=== PATIENT | male | born 1955 | race African-American/Black ===

== ENCOUNTER 2019-01-06 12:07 | Inpatient (IN) | payer OTHER ==
[~2019-01-06 12:07] MED LIST: niCARdipine 25 MG in SOD CHLORIDE 0.9% 240 ML IV
[2019-01-06 14:04] LABS: ADD MAN DIFF? NO
[2019-01-06 14:10] LABS: BASOPHILS % 0.7 % (0.0-2.0); EOSINOPHILS # 0.1 10^3/ul (0.0-0.5); EOSINOPHILS % 1.5 % (0.0-7.0); HEMATOCRIT 47.1 % (42.0-52.0); HEMOGLOBIN 14.8 g/dl (14.0-18.0); LYMPHOCYTES # 1.2 10^3/ul (0.8-2.9); LYMPHOCYTES % 29.3 % (15.0-51.0); MEAN CORPUSCULAR HGB CONC 31.4 g/dl (32.0-37.0); MEAN CORPUSCULAR VOLUME 79.7 fl (82.0-101.0); MEAN PLATELET VOLUME 8.8 fl (7.4-10.4); MONOCYTE # 0.5 10^3/ul (0.3-0.9); NEUTROPHIL # 2.3 10^3/ul (1.6-7.5); NEUTROPHILS % 56.3 % (39.0-77.0); PLATELET COUNT 228 10^3/UL (140-415); RED BLOOD COUNT 5.91 10^6/ul (4.70-6.10); RED CELL DISTRIBUTION WIDTH 13.5 % (11.5-14.5)
[2019-01-06 14:10] LABS: WHITE BLOOD COUNT 4.1 10^3/ul (4.8-10.8)
[2019-01-06] MEDS: SOD CHLORIDE 0.9% IV (14:16)
[2019-01-06 14:27] LABS: ALANINE AMINOTRANSFERASE 26 IU/L (13-69); ALBUMIN 4.2 g/dl (3.3-4.9); ALBUMIN/GLOBULIN RATIO 1.35; ALKALINE PHOSPHATASE 98 IU/L (42-121); ANION GAP 2 (5-13); ASPARTATE AMINO TRANSFERASE 25 IU/L (15-46); BILIRUBIN,INDIRECT 0.6 mg/dl (0-1.1); BILIRUBIN,TOTAL 0.6 mg/dl (0.2-1.3); BLOOD UREA NITROGEN 16 mg/dl (7-20); CALCIUM 9.2 mg/dl (8.4-10.2); CARBON DIOXIDE 34 mmol/L (21-31); CHLORIDE 104 mmol/L (97-110); CREATININE 1.21 mg/dl (0.61-1.24); Estimated GFR > 60 mL/min (>60); GLUCOSE 99 mg/dl (70-220); POTASSIUM 4.3 mmol/L (3.5-5.1); SODIUM 140 mmol/L (135-144); TOTAL PROTEIN 7.3 g/dl (6.1-8.1)
[2019-01-06 14:28] LABS: SALICYLATE < 1.0 mg/dl (5.0-30.0)
[2019-01-06 14:38] LABS: TROPONIN-I < 0.012 ng/ml (0.000-0.120)
[2019-01-06 14:46] LABS: ACETAMINOPHEN < 10.0 ug/ml (10.0-30.0); ETHANOL < 10.0 mg/dl (0-0); INR 1.08; PROTIME 14.1 Sec (11.9-14.9); PT RATIO 1.1
[2019-01-06] MEDS: SOD CHLORIDE 0.9% IVPB (14:57)
[2019-01-06] MEDS: DESMOPRESSIN IVPB (14:57)
[2019-01-06] MEDS: niCARdipine 25 MG in SOD CHLORIDE 0.9% 240 ML IV ×4 (15:10→22:19)
[2019-01-06] MEDS ORDERED: NACL 0.9% 3 ML SYG IV (16:00)
[2019-01-06] MEDS ORDERED: ONDANSETRON 4 MG INJ IV (16:00)
[2019-01-06 16:08] LABS: ADD UMIC YES; UR ASCORBIC ACID NEGATIVE (NEGATIVE); UR BILIRUBIN (Dip) NEGATIVE (NEGATIVE); UR BLOOD (Dip) 1+ mg/dL (NEGATIVE); UR CLARITY CLEAR (CLEAR); UR COLOR YELLOW (YELLOW); UR GLUCOSE (Dip) NEGATIVE (NEGATIVE); UR KETONES (Dip) NEGATIVE (NEGATIVE); UR LEUKOCYTE ESTERASE (Dip) NEGATIVE Leu/ul (NEGATIVE); UR MUCUS FEW /HPF (NONE SEEN); UR NITRITE (Dip) NEGATIVE (NEGATIVE); UR RBC 1 /HPF (0-5); UR SPECIFIC GRAVITY (Dip) 1.019 (1.003-1.030); UR TOTAL PROTEIN (Dip) NEGATIVE (NEGATIVE); UR UROBILINOGEN (Dip) NEGATIVE (NEGATIVE); UR WBC 0 /HPF (0-5)
[2019-01-06 16:53] LABS: AMPHETAMINE/METHAMPHETAMINE Negative (NEGATIVE); BARBITURATES Negative (NEGATIVE); BENZODIAZEPINES Negative (NEGATIVE); CANNABINOIDS Negative (NEGATIVE); COCAINE Negative (NEGATIVE); OPIATES Negative (NEGATIVE)
[2019-01-06 16:54] LABS: PARTIAL THROMBOPLASTIN TIME 33.2 Sec (23.0-35.0)
[2019-01-06] MEDS ORDERED: SOD CHLORIDE 0.9% 1,000 ML IV (17:00)
[2019-01-06 18:52] LABS: LACTIC ACID 1.2 mmol/L (0.5-2.0)
[2019-01-06] MEDS: ACETAMINOPHEN 325 MG TAB PO (20:03)
[2019-01-06 20:05] LABS: TYPE AND SCREEN 1 1
[2019-01-06] MEDS: LABETALOL 100 MG TAB PO (20:27)
[2019-01-06] MEDS: IODIXANOL LOCM 100 ML BTL (23:24)
[2019-01-06] MEDS: SOD CHLORIDE 0.9% 100 ML (23:24)
[2019-01-07] MEDS: niCARdipine 25 MG in SOD CHLORIDE 0.9% 240 ML IV ×4 (01:17→12:43)
[2019-01-07] MEDS: ACETAMINOPHEN 325 MG TAB PO ×2 (03:46→16:34)
[2019-01-07 05:27] LABS: ADD MAN DIFF? NO
[2019-01-07 05:33] LABS: WHITE BLOOD COUNT 5.9 10^3/ul (4.8-10.8)
[2019-01-07 05:33] LABS: BASOPHILS % 0.3 % (0.0-2.0); EOSINOPHILS # 0.1 10^3/ul (0.0-0.5); HEMATOCRIT 46.1 % (42.0-52.0); HEMOGLOBIN 15.1 g/dl (14.0-18.0); LYMPHOCYTES # 1.2 10^3/ul (0.8-2.9); LYMPHOCYTES % 20.3 % (15.0-51.0); MEAN CORPUSCULAR HEMOGLOBIN 25.5 pg (29.0-33.0); MEAN CORPUSCULAR HGB CONC 32.8 g/dl (32.0-37.0); MEAN PLATELET VOLUME 9.2 fl (7.4-10.4); MONOCYTE # 0.6 10^3/ul (0.3-0.9); MONOCYTES % 9.3 % (0.0-11.0); NEUTROPHIL # 4.1 10^3/ul (1.6-7.5); NEUTROPHILS % 68.8 % (39.0-77.0); PLATELET COUNT 253 10^3/UL (140-415); RED BLOOD COUNT 5.91 10^6/ul (4.70-6.10); RED CELL DISTRIBUTION WIDTH 13.5 % (11.5-14.5)
[2019-01-07 05:52] LABS: HEMOGLOBIN A1C 5.5 % (0-5.9)
[2019-01-07 06:12] LABS: ALANINE AMINOTRANSFERASE 27 IU/L (13-69); ALBUMIN 4.1 g/dl (3.3-4.9); ALBUMIN/GLOBULIN RATIO 1.24; ALKALINE PHOSPHATASE 100 IU/L (42-121); ANION GAP 10 (5-13); ASPARTATE AMINO TRANSFERASE 23 IU/L (15-46); BLOOD UREA NITROGEN 9 mg/dl (7-20); CALCIUM 9.1 mg/dl (8.4-10.2); CARBON DIOXIDE 25 mmol/L (21-31); CHLORIDE 103 mmol/L (97-110); CHOL/HDL RATIO 4.8 RATIO; CHOLESTEROL 217 mg/dl (100-200); CREATININE 0.92 mg/dl (0.61-1.24); Estimated GFR > 60 mL/min (>60); GLUCOSE 100 mg/dl (70-220); HDL CHOLESTEROL 45 mg/dl (30-78); LDL CHOLESTEROL,CALCULATED 163 mg/dl; MAGNESIUM 1.8 mg/dl (1.7-2.5); PHOSPHORUS 3.4 mg/dl (2.5-4.9); POTASSIUM 3.8 mmol/L (3.5-5.1); SODIUM 138 mmol/L (135-144); TOTAL PROTEIN 7.4 g/dl (6.1-8.1); TRIGLYCERIDES 45 mg/dl (0-149)
[2019-01-07] MEDS: PANTOPRAZOLE (EC) 40 MG TAB PO (06:12)
[2019-01-07 06:27] LABS: THYROID STIMULATING HORMONE 0.939 MIU/L (0.465-4.680)
[2019-01-07] MEDS: LABETALOL 100 MG TAB PO ×2 (10:18→21:11)
[2019-01-07] MEDS: AMLODIPINE 5 MG TAB PO (11:00)
[2019-01-08] MEDS: niCARdipine 25 MG in SOD CHLORIDE 0.9% 240 ML IV ×3 (01:59→08:42)
[2019-01-08] MEDS: PANTOPRAZOLE (EC) 40 MG TAB PO (05:19)
[2019-01-08] MEDS: ACETAMINOPHEN 325 MG TAB PO ×2 (05:24→21:07)
[2019-01-08] MEDS: LABETALOL 100 MG TAB PO ×2 (08:43→21:07)
[2019-01-08] MEDS: LISINOPRIL 10 MG TAB PO (08:43)
[2019-01-08] MEDS: AMLODIPINE 5 MG TAB PO ×2 (08:43→21:08)
[2019-01-08] MEDS: KETOROLAC 30 MG INJ IV (08:44)
[2019-01-08] MEDS ORDERED: NAPROXEN 500 MG TAB PO (09:00)
[2019-01-08] MEDS: hydrALAzine 20 MG INJ IV ×2 (16:33→21:35)
[2019-01-09 05:38] LABS: ADD MAN DIFF? NO
[2019-01-09] MEDS: hydrALAzine 20 MG INJ IV ×2 (05:51→15:06)
[2019-01-09] MEDS: PANTOPRAZOLE (EC) 40 MG TAB PO (05:51)
[2019-01-09 05:58] LABS: BASOPHILS % 0.3 % (0.0-2.0); EOSINOPHILS % 0.3 % (0.0-7.0); HEMATOCRIT 47.8 % (42.0-52.0); HEMOGLOBIN 15.6 g/dl (14.0-18.0); LYMPHOCYTES # 1.4 10^3/ul (0.8-2.9); LYMPHOCYTES % 17.3 % (15.0-51.0); MEAN CORPUSCULAR HEMOGLOBIN 25.4 pg (29.0-33.0); MEAN CORPUSCULAR HGB CONC 32.6 g/dl (32.0-37.0); MEAN CORPUSCULAR VOLUME 77.7 fl (82.0-101.0); MEAN PLATELET VOLUME 9.1 fl (7.4-10.4); MONOCYTE # 0.9 10^3/ul (0.3-0.9); MONOCYTES % 11.4 % (0.0-11.0); NEUTROPHIL # 5.5 10^3/ul (1.6-7.5); NEUTROPHILS % 70.3 % (39.0-77.0); PLATELET COUNT 207 10^3/UL (140-415); RED BLOOD COUNT 6.15 10^6/ul (4.70-6.10); RED CELL DISTRIBUTION WIDTH 13.6 % (11.5-14.5)
[2019-01-09 05:58] LABS: WHITE BLOOD COUNT 7.8 10^3/ul (4.8-10.8)
[2019-01-09 07:32] LABS: ANION GAP 8 (5-13); BLOOD UREA NITROGEN 15 mg/dl (7-20); CALCIUM 9.3 mg/dl (8.4-10.2); CARBON DIOXIDE 25 mmol/L (21-31); CHLORIDE 107 mmol/L (97-110); CREATININE 0.93 mg/dl (0.61-1.24); Estimated GFR > 60 mL/min (>60); GLUCOSE 108 mg/dl (70-220); POTASSIUM 3.6 mmol/L (3.5-5.1); SODIUM 140 mmol/L (135-144)
[2019-01-09] MEDS: LABETALOL 100 MG TAB PO ×2 (08:09→20:38)
[2019-01-09] MEDS: AMLODIPINE 5 MG TAB PO ×2 (08:10→20:37)
[2019-01-09] MEDS: LISINOPRIL 10 MG TAB PO (08:10)
[2019-01-09] MEDS: ACETAMINOPHEN 325 MG TAB PO (15:06)
[2019-01-10] MEDS: PANTOPRAZOLE (EC) 40 MG TAB PO (05:26)
[2019-01-10] MEDS: LABETALOL 100 MG TAB PO ×2 (09:13→20:01)
[2019-01-10] MEDS: LISINOPRIL 20 MG TAB PO (09:13)
[2019-01-10] MEDS: AMLODIPINE 5 MG TAB PO ×2 (09:14→20:01)
[2019-01-10] MEDS: ENALAPRILAT 1.25 MG INJ IV ×4 (10:22→19:56)
[2019-01-10] MEDS: hydrALAzine 20 MG INJ IV ×2 (11:35→17:48)
[2019-01-10] MEDS ORDERED: HYDROCODONE/APAP (5/325) TAB PO (12:00)
[2019-01-10] MEDS: LABETALOL HCL 20MG INJ IV (19:39)
[2019-01-11] MEDS: ACETAMINOPHEN 325 MG TAB PO (05:24)
[2019-01-11] MEDS: hydrALAzine 20 MG INJ IV (05:24)
[2019-01-11] MEDS: PANTOPRAZOLE (EC) 40 MG TAB PO (05:24)
[2019-01-11] MEDS: LABETALOL 100 MG TAB PO (08:39)
[2019-01-11] MEDS: AMLODIPINE 5 MG TAB PO (08:40)
[2019-01-11] MEDS: LISINOPRIL 20 MG TAB PO (08:40)
== END 2019-01-11 14:29 | DRG 65 ==
LOC: 6WM 01-09 05:24 → E/R 12:07 → ICU 15:38
DX: I61.5 Nontraumatic intracerebral hemorrhage, intraventricular (principal); I16.1 Hypertensive emergency; Z86.73 Personal history of transient ischemic attack (TIA), and cerebral infarction without residual deficits
CPT/HCPCS: 36430; 70450; 70496; 70551; 71045; 80048; 80053; 80061; 80307; 81001; 83036; 83605; 83735; 84100; 84443; 84484; 85025; 85610; 85730; 86644; 86850; 86900; 86901; 87040; 87081; 87400; 93005; 96374; 96375; 97116; 97162; 97530; 99291-25